=== PATIENT | female | born 1995 | race Caucasian/White ===

== ENCOUNTER 2022-02-25 00:42 | Emergency (ER) | payer SELFPAY ==
[~2022-02-25] VITALS: Ht 170.2 cm; Wt 99.8 kg
[2022-02-25 00:45] VITALS: BP 129/79
[2022-02-25] MEDS ORDERED: IBUP-2213 PO (02:20)
[2022-02-25] MEDS ORDERED: SULF-59 PO (02:20)
[2022-02-25 02:24] VITALS: BP 129/79
== END 2022-02-25 02:24 | disposition home or self-care (01) ==
LOC: MED 00:42
DX: L53.8 Other specified erythematous conditions (principal); Z88.0 Allergy status to penicillin; Z88.1 Allergy status to other antibiotic agents
CPT/HCPCS: 99283